=== PATIENT | female | born 1975 | race Caucasian/White ===

== ENCOUNTER 2018-07-03 17:53 | Emergency (ER) | payer OTHER ==
[2018-07-03 18:26] VITALS: BP 103/66
--- NOTE | 2018-07-03 18:57 | ED ---
Back Pain - HPI Summary HPI Summary: 42 yr old female with the complaint of low back pain. Onset of pain on 06/29. She was doing a lot of cleaning and bending over. She felt her muscles felt pulled, but then the follow ing morning she felt the back muscles feel tighter and she noticed it was harder to stand up straight. She started herself on prednisone since she has a history of Lupus and gets flare ups. She has had pain in the same area in the past with sciatica. The patient rated her pain as 10/10 on tuesday. Today it is 6/10 and she is feeling better. She has no bowel or bladder incontinence. She is already on Vicodin for chronic pain from her PMD. No fever, chills, falls or trauma. No other complaints. - History of Current Complaint Chief Complaint: UCBackPain Stated Complaint: SEVERE BACK PAIN Time Seen by Provider: 07/03/18 18:24 Hx Last Menstrual Period: 06/18/18 Pain Intensity: 7 - Allergies/Home Medications Allergies/Adverse Reactions: Allergies Allergy/AdvReac Type Severity Reaction Status Date / Time No Known Allergies Allergy Verified 07/03/18 18:26 PMH/Surg Hx/FS Hx/Imm Hx Endocrine/Hematology History: Denies: Hx Diabetes Cardiovascular History: Denies: Hx Hypertension, Hx Pacemaker/ICD History: Denies: Hx Renal Disease Sensory History: Denies: Hx Hearing Aid Neurological History: Reports: Other Neuro Impairments/Disorders - LUPUS Psychiatric History: Reports: Hx Anxiety Denies: Hx Panic Disorder - Cancer History Cancer Type, Location and Year: [facility] Hx Chemotherapy: No Hx Radiation Therapy: No - Surgical History Surgery Procedure, Year, and Place: Essure, Appendectomy Infectious Disease History: No Infectious Disease History: Denies: Traveled Outside the [place] in Last 30 Days - Family History Known Family History: Positive: Hypertension - Social History Alcohol Use: Rare Substance Use Type: Reports: None Smoking Status (MU): Heavy Every Day Tobacco Smoker Type: Cigarettes Amount Used/How Often: 1 PPD Length of Time of Smoking/Using Tobacco: 22 Years Have You Smoked in the Last Year: Yes Review of Systems Constitutional: Negative Positive: Other - back pain All Other Systems Reviewed And Are Negative: Yes Physical Exam Triage Information Reviewed: Yes Vital Signs On Initial Exam: Initial Vitals Temp Pulse Resp BP Pulse Ox 97.7 F 86 16 103/66 98 07/03/18 18:23 07/03/18 18:23 07/03/18 18:23 07/03/18 18:23 07/03/18 18:23 Vital Signs Reviewed: Yes Appearance: Positive: Well-Appearing, No Pain Distress Skin: Positive: Warm, Skin Color Reflects Adequate Perfusion Head/Face: Positive: Normal Head/Face Inspection Eyes: Positive: EOMI ENT: Positive: Normal ENT inspection Neck: Positive: Nontender Respiratory/Lung Sounds: Positive: Clear to Auscultation, Breath Sounds Present Cardiovascular: Positive: RRR Abdomen Description: Negative: Distended Musculoskeletal: Positive: Strength/ROM Intact, Other - No midline CTLS spine tenderness. She has some paraspinal muscle tenderness in the lumbar area. She has positive straight leg raise both right and left legs. Neurological: Positive: Sensory/Motor Intact, Alert, Oriented to Person Place, Time, CN Intact II-III, Speech Normal - [place] Coma Scale Best Eye Response: 4 - Spontaneous Best Motor Response: 6 - Obeys Commands Best Verbal Response: 5 - Oriented Coma Scale Total: 15 Diagnostics - Vital Signs Vital Signs Temp Pulse Resp BP Pulse Ox 07/03/18 18:23 97.7 F 86 16 103/66 98 - Laboratory Lab Statement: Any lab studies that have been ordered have been reviewed, and results considered in the medical decision making process. Back Pain Course/Dx - Course Course Of Treatment: 42 yr old with back strain and sciatic features. She has had the same in the past. She likely overdid it bending over and cleaning. The patient has steadily gotten better the past couple of days. DC home. - Diagnoses Provider Diagnoses: Back pain, Sciatica Discharge - Sign-Out/Discharge Documenting (check all that apply): Patient Departure All imaging exams completed and their final reports reviewed: No Studies - Discharge Plan Condition: Good Disposition: HOME Patient Education Materials: Back Pain (ED) Referrals: Lambert Su MD [Primary Care Provider] - 2 Days - Billing Disposition and Condition Condition: GOOD Disposition: Home
== END 2018-07-03 19:04 | disposition home or self-care (01) ==
LOC: UCCORT 17:53
DX: M54.40 Lumbago with sciatica, unspecified side (principal); F17.210 Nicotine dependence, cigarettes, uncomplicated
CPT/HCPCS: 99211; G0463

== ENCOUNTER 2019-03-19 10:20 | Emergency (ER) | payer OTHER ==
[2019-03-19 11:09] VITALS: BP 138/96
--- NOTE | 2019-03-19 11:51 | UC ---
Knee Pain HPI - HPI Summary HPI Summary: 43 year old female with PMH + for RA as a child, stated she was told in her 20' s that she no longer had RA, but was recently diagnosed with lupus by her PCP. Started for past 2-3 weeks has had increased right knee pain, no trauma, no eliciting event. + swelling, + warmth, no redness. nofever, chills, no h/o tick bites, rashes. was told in 's she was a candidate for a knee replacement. - History of Current Complaint Chief Complaint: UCLowerExtremity Stated Complaint: R KNEE COMP Time Seen by Provider: 03/19/19 10:38 Hx Obtained From: Patient Hx Last Menstrual Period: 06/18/18 ?: No Onset/Duration: Sudden Onset, Lasting Weeks - 2-3 Severity Initially: Severe Severity Currently: Severe Pain Intensity: 8 Pain Scale Used: 0-10 Numeric Character: Sharp, Aching, Spasmodic, Stiffness Aggravating Factor(s): Movement, Weight Bearing Alleviating Factor(s): Rest - Allergies/Home Medications Allergies/Adverse Reactions: Allergies Allergy/AdvReac Type Severity Reaction Status Date / Time No Known Allergies Allergy Verified 03/19/19 11:07 PMH/Surg Hx/FS Hx/Imm Hx Previously Healthy: Yes - lupus - Surgical History Surgical History: Yes Surgery Procedure, Year, and Place: Essure, Appendectomy - Family History Known Family History: Positive: Hypertension, Non-Contributory - Social History Occupation: Employed Full-time Alcohol Use: Occasionally Substance Use Type: None Smoking Status (MU): Heavy Every Day Tobacco Smoker Type: Cigarettes Amount Used/How Often: 1 PPD Length of Time of Smoking/Using Tobacco: 22 Years Have You Smoked in the Last Year: Yes - Immunization History Most Recent Influenza Vaccination: Not the 2014/2015 Season Review of Systems All Other Systems Reviewed And Are Negative: Yes Constitutional: Negative: Fever, Chills, Fatigue Musculoskeletal: Positive: Arthralgia, Decreased ROM, Edema, Myalgia Neurological: Positive: Negative Is Patient Immunocompromised?: No Physical Exam Triage Information Reviewed: Yes Appearance: Well-Appearing, Well-Nourished, Ill-Appearing - mild Vital Signs: Initial Vital Signs Temp 98.2 F 03/19/19 11:05 Pulse 70 03/19/19 11:05 Resp 16 03/19/19 11:05 BP 138/96 03/19/19 11:05 Pulse Ox 100 03/19/19 11:05 Vital Signs Reviewed: Yes Eyes: Positive: Conjunctiva Clear ENT: Positive: Hearing grossly normal Musculoskeletal: Positive: Strength Intact, ROM Limited @ - 15-90 PROM due to pain. TTP throughout knee, worse MJL, LJL, lateral patella/ medial pattella. mild JE. no ankle pain. neg homans SITLT. Neurological: Positive: Alert, Muscle Tone Normal Psychological Exam: Normal Skin Exam: Normal Skin: Positive: Other - no rashes, open wounds, sores. Knee Pain Course/Dx - Course Course Of Treatment: - FOllow up with orthopedics for further work up - Naproxen twice daily to decrease swelling, pain - Ice, elevate as much as possible - Return with worsening of symptoms, fever, chills, rash. - Discussed the possibility of lyme disease - Differential Dx/Diagnosis Provider Diagnosis: Knee injury Discharge ED - Sign-Out/Discharge Documenting (check all that apply): Patient Departure All imaging exams completed and their final reports reviewed: Yes - Discharge Plan Condition: Good Disposition: HOME Prescriptions: Naproxen [Naproxen 500 mg tab] 500 mg PO BID #60 tablet.dr Patient Education Materials: Knee Pain (ED) Referrals: Lambert Su MD [Primary Care Provider] - Henrik Loredo MD [Medical Doctor] - (Follow up within 1 week ) Additional Instructions: - FOllow up with orthopedics for further work up - Naproxen twice daily to decrease swelling, pain - Ice, elevate as much as possible - Return with worsening of symptoms, fever, chills, rash. - Discussed the possibility of lyme disease - Billing Disposition and Condition Condition: GOOD Disposition: Home - Attestation Statements Provider Attestation: This patient was not seen by me. I was available for consult. Chart reviewed. ARIANA
== END 2019-03-19 11:55 | disposition home or self-care (01) ==
LOC: UCCORT 10:20
DX: S89.91XA Unspecified injury of right lower leg, initial encounter (principal); M32.9 Systemic lupus erythematosus, unspecified; F17.210 Nicotine dependence, cigarettes, uncomplicated; X58.XXXA Exposure to other specified factors, initial encounter; Y92.9 Unspecified place or not applicable
CPT/HCPCS: 99212; G0463